=== PATIENT | male | born 2000 | race Caucasian/White ===

== ENCOUNTER 2025-04-17 14:07 | Outpatient (CLI) | payer BC, SELFPAY | END 2025-04-17 14:08 | disposition home or self-care (01) | PROVIDERS: PCP Family Medicine; Visit Provider Family Medicine | DX: R42 Dizziness and giddiness (principal); Z13.6 Encounter for screening for cardiovascular disorders | CPT/HCPCS: 80048; 80061; 84439; 84443; 84460; 85025 ==

== ENCOUNTER 2025-06-05 17:30 | Outpatient (CLI) | payer BC, SELFPAY ==
--- NOTE | 2025-06-05 19:00 | CRLHL7_ITS ---
For Patients: As a result of the Century Cures Act, medical imaging exams and procedure reports are released immediately into your electronic medical record. You may view this report before your referring provider. If you have questions, please contact your health care provider. Indication: Arachnoid cyst. Technique: Noncontrast sagittal T1, axial FLAIR, T2, diffusion weighted sequences are provided. No comparisons. Findings: There is a 4.4 x 2.0 x 2.0 cm CSF signal intensity lesion abutting the posterior medial aspect of the left cerebellum compatible with an incidental arachnoid cyst. The remainder of the ventricles, sulci and gyri are normal size, shape and contour for age. The midline structures are centrally located with no evidence of shift. There are no suspicious intra or extra-axial fluid collections. No region of restricted diffusion. Expected flow voids in the cavernous carotids and basilar artery. Impression: 1. No radiographic evidence of acute intracranial abnormalities. 2. Incidental arachnoid cyst abutting the posteromedial aspect of the left cerebellum. Dictated by Rhett Cota MD @ 06/06/2025 8:35:16 AM (Electronically Signed)
== END 2025-06-05 17:31 | disposition home or self-care (01) ==
LOC: MRI 17:30
PROVIDERS: PCP Family Medicine; Visit Provider Family Medicine
DX: G93.0 Cerebral cysts (principal)
CPT/HCPCS: 70551